=== PATIENT | female | born 1995 | race Two or more races ===

== ENCOUNTER 2020-01-24 23:08 | Inpatient (IN) | payer MEDICAID, OTHER ==
[~2020-01-24] VITALS: Ht 170.2 cm; Wt 74.1 kg
[~2020-01-24 23:08] MED LIST: ESCI10TA PO; RISP3 PO
[2020-01-25 00:47] LABS: BASOPHILS % (AUTO) 0.8 % (0.0-2.0); EOSINOPHILS % (AUTO) 1.1 % (1.0-6.0); HEMATOCRIT 41.2 % (36-46); HEMOGLOBIN 13.9 g/dL (12.0-16.0); LYMPHOCYTES # (AUTO) 2.6 K/uL (1.0-4.8); LYMPHOCYTES % (AUTO) 27.4 % (22.0-44.0); MEAN CORPUSCULAR HEMOGLOBIN 29.7 pg (26.0-34.0); MEAN CORPUSCULAR HGB CONC 33.6 G/dL (31.0-37.0); MEAN CORPUSCULAR VOLUME 88 fL (80-100); MONOCYTES # (AUTO) 0.8 K/uL (0.1-1.0); NEUTROPHILS # (AUTO) 5.9 K/uL (1.8-7.7); NEUTROPHILS % (AUTO) 62.7 % (40.0-70.0); PLATELET COUNT (AUTO) 303 K/uL (150-450); RED BLOOD CELL COUNT(AUTO) 4.67 MIL/uL (4.00-5.20); RED CELL DISTRIBUTION WIDTH 12.9 % (11.5-14.5)
[2020-01-25 00:59] LABS: ANION GAP 8 mmol/L (8-16); CALCIUM, TOTAL 9.1 mg/dL (8.8-10.5); CARBON DIOXIDE 27 mmol/L (22-29); CHLORIDE 103 mmol/L (98-107); CREATININE 0.64 mg/dL (0.60-1.30); GLOMERULAR FILTR. RATE CALC > 60 mL/min (>60); GLUCOSE,RANDOM 101 mg/dL (70-110); POTASSIUM 3.6 mmol/L (3.5-5.1); SODIUM SERUM 138 mmol/L (136-145); UREA NITROGEN, BLOOD 10 mg/dL (7-18)
[2020-01-25 01:10] LABS: ALANINE AMINOTRANSFERASE 22 U/L (12-78); ALBUMIN 3.9 g/dL (3.4-5.0); ALKALINE PHOSPHATASE 66 U/L (46-116); ASPARTATE AMINOTRANSFERASE 14 U/L (15-37); BILIRUBIN,TOTAL 0.2 mg/dL (0.1-1.0); HCG,QUANTITATIVE < 1 mIU/mL (0-6); TOTAL PROTEIN, SERUM 7.7 g/dL (6.4-8.2)
[2020-01-25 02:46] LABS: AMPHET/METH SCREEN,URINE NEGATIVE (NEGATIVE); BARBITURATE SCREEN, URINE NEGATIVE (NEGATIVE); BENZODIAZEPINES SCREEN,URINE NEGATIVE (NEGATIVE); CANNABINOID SCREEN,URINE NEGATIVE (NEGATIVE); COCAINE SCREEN,URINE NEGATIVE (NEGATIVE); METHADONE SCREEN, URINE NEGATIVE (NEGATIVE); OPIATE SCREEN,URINE NEGATIVE (NEGATIVE)
[2020-01-25 02:47] LABS: PHENCYCLIDINE SCREEN,URINE NEGATIVE (NEGATIVE)
[2020-01-25] MEDS ORDERED: 0.9% SODIUM CHLORIDE 10 ML SYRINGE IVP PRN (03:00)
[2020-01-25] MEDS ORDERED: ONDANSETRON HCL 4 MG/2 ML VIAL IVP PRN (03:00)
[2020-01-25] MEDS ORDERED: ACETAMINOPHEN 325 MG TABLET PO PRN ×2 (03:00→08:00)
[2020-01-25 04:48] VITALS: BP 112/74
[2020-01-25] MEDS ORDERED: INFLUENZA VIRUS VACCINE QVS 2019-20 (3YR+)/PF 60 MCG/0.5 ML SYRINGE IM ONE (06:00)
[2020-01-25] MEDS ORDERED: ZOLPIDEM TARTRATE 10 MG TABLET PO PRN (06:45)
[2020-01-25] MEDS ORDERED: BACITRACIN 28.4 GM OINTMENT TP PRN (08:00)
[2020-01-25] MEDS ORDERED: MAG HYDROX/AL HYDROX/SIMETH ES 30 ML SUSPENSION UDCUP PO PRN (08:00)
[2020-01-25] MEDS ORDERED: ALBUTEROL SULFATE HFA 90 MCG/PUFF 8 GM INHALER IH PRN (08:00)
[2020-01-25] MEDS ORDERED: PETROLATUM,WHITE 28 GM JELLY TP PRN (08:00)
[2020-01-25] MEDS ORDERED: CloNIDine HCL 0.1 MG TABLET PO PRN (08:00)
[2020-01-25] MEDS ORDERED: OMEPRAZOLE 20 MG CAPSULE PO PRN (08:00)
[2020-01-25] MEDS ORDERED: MAGNESIUM HYDROXIDE SUSPENSION 30 ML UDCUP PO PRN (08:00)
[2020-01-25] MEDS ORDERED: DOCUSATE SODIUM 100 MG CAPSULE PO PRN (08:00)
[2020-01-25] MEDS ORDERED: LOPERAMIDE HCL 2 MG CAPSULE PO PRN (08:00)
[2020-01-25] MEDS ORDERED: BENZOCAINE/MENTHOL LOZENGE MM PRN (08:00)
[2020-01-25 09:00] VITALS: BP 137/77
[2020-01-25] MEDS: ONDANSETRON HCL 4 MG TABLET PO PRN (12:39)
[2020-01-25 18:41] VITALS: BP 128/79
[2020-01-25] MEDS: DIVALPROEX SODIUM 500 MG DR TABLET PO SCH (20:14)
[2020-01-26 08:09] LABS: CHOL/HDL RATIO 3.8 (3.9-5.7)
[2020-01-26 08:33] VITALS: BP 124/78
[2020-01-26] MEDS: DIVALPROEX SODIUM 500 MG DR TABLET PO SCH ×2 (09:01→16:38)
[2020-01-26] MEDS: HALOPERIDOL 5 MG TABLET PO PRN (10:10)
[2020-01-26] MEDS: LORazepam 2 MG TABLET PO PRN (10:10)
[2020-01-26 18:55] VITALS: BP 122/75
[2020-01-27] MEDS: DIVALPROEX SODIUM 500 MG DR TABLET PO SCH ×2 (09:29→16:13)
[2020-01-27 12:17] VITALS: BP 119/71
[2020-01-27] MEDS: RisperiDONE 1 MG TABLET PO SCH (16:13)
[2020-01-27] MEDS: LORazepam 2 MG TABLET PO PRN (16:14)
[2020-01-27 18:46] VITALS: BP 127/86
[2020-01-28] MEDS: ONDANSETRON HCL 4 MG TABLET PO PRN (09:33)
[2020-01-28] MEDS: DIVALPROEX SODIUM 500 MG DR TABLET PO SCH ×2 (09:33→16:17)
[2020-01-28] MEDS: RisperiDONE 1 MG TABLET PO SCH ×2 (09:34→16:17)
[2020-01-28 11:01] VITALS: BP 100/48
[2020-01-28 20:00] VITALS: BP 118/78
[2020-01-29] MEDS: DIVALPROEX SODIUM 500 MG DR TABLET PO SCH ×2 (08:01→16:09)
[2020-01-29] MEDS: RisperiDONE 1 MG TABLET PO SCH ×2 (08:01→16:09)
[2020-01-29 17:00] VITALS: BP 110/69
[2020-01-29] MEDS: IBUPROFEN 600 MG TABLET PO PRN ×2 (17:06→21:39)
[2020-01-29 21:39] VITALS: BP 123/73
[2020-01-30 08:30] VITALS: BP 128/65
[2020-01-30] MEDS: DIVALPROEX SODIUM 500 MG DR TABLET PO SCH ×2 (08:45→15:52)
[2020-01-30] MEDS: RisperiDONE 1 MG TABLET PO SCH ×2 (08:45→15:53)
[2020-01-30] MEDS: LORazepam 2 MG TABLET PO PRN ×2 (12:22→20:23)
[2020-01-30] MEDS: HALOPERIDOL 5 MG TABLET PO PRN (17:51)
[2020-01-30 19:53] VITALS: BP 109/67
[2020-01-31 08:53] VITALS: BP 100/75
[2020-01-31] MEDS: RisperiDONE 1 MG TABLET PO SCH (10:20)
[2020-01-31] MEDS: DIVALPROEX SODIUM 500 MG DR TABLET PO SCH (10:20)
[2020-01-31] MEDS ORDERED: DIVA125C PO (12:35)
[2020-01-31] MEDS ORDERED: RISP1 PO (12:35)
== END 2020-01-31 14:45 | disposition home or self-care (01) | DRG 885 ==
LOC: EMS 23:09 → 3EI 01-25 03:30
PROVIDERS: ADMIT Psychiatry & Neurology Psychiatry; ATTEND Psychiatry & Neurology Psychiatry
DX: F25.9 Schizoaffective disorder, unspecified (principal); F31.9 Bipolar disorder, unspecified; F41.9 Anxiety disorder, unspecified; G47.00 Insomnia, unspecified; K59.00 Constipation, unspecified
CPT/HCPCS: G0480; Q0162